=== PATIENT | female | born 1990 | race Caucasian/White ===

== ENCOUNTER 2017-09-16 22:30 | Emergency (ER) | payer SELFPAY ==
[~2017-09-16] VITALS: Ht 162.6 cm; Wt 117.9 kg
[2017-09-16 23:22] VITALS: BP 161/86
[2017-09-17] MEDS ORDERED: ACETAMINOPHEN 325 MG TABLET PO ONE
[2017-09-17] MEDS ORDERED: ACETAMINOPHEN ES 500 MG TABLET ONE (00:24)
== END 2017-09-17 01:16 | disposition home or self-care (01) ==
LOC: ER 22:33
DX: R07.81 Pleurodynia (principal)
CPT/HCPCS: 71100; 84703; 99285; A4606; Z7610